=== PATIENT | male | born 1985 | race Caucasian/White ===

== ENCOUNTER 2022-01-22 16:18 | Emergency (ER) | payer OTHER ==
[~2022-01-22] VITALS: Ht 182.9 cm; Wt 104.8 kg
[2022-01-22] MEDS ORDERED: BUSPIRONE HCL10 MG PO (17:06)
[2022-01-22] MEDS ORDERED: LEVOFLOXACIN500 MG PO (18:50)
== END 2022-01-22 19:05 | disposition home or self-care (01) ==
LOC: ED 16:18
DX: N45.1 Epididymitis (principal)
CPT/HCPCS: 76870; 81001; 96365; 96375; 99284-25; J0696; J1885

== ENCOUNTER 2025-04-18 21:47 | Emergency (ER) | payer OTHER ==
[~2025-04-18] VITALS: Ht 182.9 cm; Wt 110.0 kg
[~2025-04-18 21:47] MED LIST: BUSPIRONE HCL10 MG PO; LEVOFLOXACIN500 MG PO
[2025-04-18] MEDS ORDERED: MORPHINE SULFATE 4 MG/ML VIAL IV ONE (23:15)
[2025-04-18 23:20] LABS: BASOPHILS 0.4 % (0.2-1.2); EOSINOPHILS 0.9 % (0.8-7.0); LYMPHOCYTES 9.9 % (21.8-53.1); MCH 30.4 PG (25.7-32.2); MCHC 35.6 g/dL (32.3-36.5); MCV 85.4 fL (79.0-92.2); MONOCYTES 6.5 % (5.3-12.2); NEUTROPHILS 81.7 % (34.0-67.9); RBC 5.26 M/uL (4.63-6.08)
[2025-04-18 23:41] LABS: ALT (SGPT) 42.0 U/L (14-59); AST (SGOT) 17.0 U/L (15-37); GLOMERULAR FILTRATION RATE,EST 103.0 mL/min (>60); PROTEIN, TOTAL 6.9 g/dL (6.4-8.2); UREA NITROGEN 16.0 mg/dL (7-18)
[2025-04-19] MEDS ORDERED: CIPRO500 MG PO (00:14)
[2025-04-19] MEDS ORDERED: CEFTRIAXONE SOD 250 MG VIAL IV ONE (00:15)
[2025-04-19] MEDS ORDERED: HYDROCODONE BIT/ACETAMINOPHEN 5/325 MG 1 TAB HOME.PACK PO ONE (00:15)
[2025-04-19] MEDS ORDERED: DOXYCYCLINE HYCLATE 100 MG HOME.PACK PO ONE (00:15)
[2025-04-19] MEDS ORDERED: HYDROCODON-ACE1 EA10 PO (00:15)
[2025-04-19 01:06] VITALS: BP 137/79
== END 2025-04-19 01:07 | disposition home or self-care (01) ==
LOC: ED 21:47
PROVIDERS: Family Medicine
DX: N45.3 Epididymo-orchitis (principal); Z79.899 Other long term (current) drug therapy
CPT/HCPCS: 76870; 80053; 85025; 86780; 96374; 96375; 99284-25; A9270; J0696; J2270

== ENCOUNTER 2025-04-20 18:46 | Inpatient (IN) | payer OTHER ==
[~2025-04-20] VITALS: Ht 182.9 cm; Wt 103.5 kg
[~2025-04-20 18:46] MED LIST changes: +CIPRO500 MG PO; +HYDROCODON-ACE1 EA10 PO
--- OUTSIDE RECORDS SUMMARY | 2025-04-20 18:53 | XMS ---
PreManage Notification: TIFFANIE LOPEZ Security Global Professional Events No recent Security Events currently on file CRITERIA MET - [facility] - 2 Visits in 30 Days CARE PROVIDERS -, [facility]ist: Director Of Development And Marketing [facility] PHONE: [phone] [place], [facility]: [facility] ([facility]) PHONE: [phone] Martha has no Care Guidelines for this patient. [place] VISIT COUNT (12 MO.) 2 [facility] TOTAL 2 NOTE: Visits indicate total known visits. ED/UCC VISIT TRACKING (12 MO.) 04/20/2025 18:47 [facility] [place] TYPE: Emergency COMPLAINT: - GENITAL PROBLEM 04/18/2025 21:47 [facility] [place] TYPE: Emergency COMPLAINT: - ABDOMINAL PAIN INPATIENT VISIT TRACKING (12 MO.) No inpatient visits to display in this time frame [email or web address]
[2025-04-20 21:05] LABS: BASOPHILS 0.3 % (0.2-1.2); EOSINOPHILS 0.7 % (0.8-7.0); LYMPHOCYTES 6.5 % (21.8-53.1); MCH 30.4 PG (25.7-32.2); MCHC 34.8 g/dL (32.3-36.5); MCV 87.3 fL (79.0-92.2); MONOCYTES 5.9 % (5.3-12.2); NEUTROPHILS 86.0 % (34.0-67.9); RBC 5.04 M/uL (4.63-6.08)
[2025-04-20 21:30] LABS: ALT (SGPT) 35.0 U/L (14-59); AST (SGOT) 14.0 U/L (15-37); GLOMERULAR FILTRATION RATE,EST 80.0 mL/min (>60); PROTEIN, TOTAL 7.9 g/dL (6.4-8.2); UREA NITROGEN 17.0 mg/dL (7-18)
[2025-04-20] MEDS ORDERED: MORPHINE SULFATE 4 MG/ML VIAL IV ONE (21:45)
[2025-04-21] VITALS (8 sets, daily range): BP systolic 97–137; BP diastolic 54–75
[2025-04-21] MEDS ORDERED: KETOROLAC TROMETHAMINE 30 MG/ML VIAL IV PRN (00:15)
[2025-04-21] MEDS ORDERED: MORPHINE SULFATE 4 MG/ML VIAL IV PRN (00:15)
[2025-04-21] MEDS ORDERED: ACETAMINOPHEN 325 MG TAB PO PRN (00:15)
[2025-04-21] MEDS ORDERED: SODIUM CHLORIDE 0.9% 1,000 ML IV SCH (00:15)
--- NOTE | 2025-04-21 01:27 | NUR ---
PT ARRIVES TO FLOOR VIA , PT'S FRIEND RAFFI AT BEDSIDE. PT IS ALERT AND ORIENTED, ABLE TO STAND FROM WC AND TRANSFER TO THE BED WITH MINIMAL ASSISTANCE. PT ASSESSMENT COMPLETE. PT DENIES NAUSEA, OR SOB. REPORTS PAIN 6/10. NATALIIA AREA VISUALIZED, R TESTICLE IS APPROXIMATELY BASEBALL SIZED. SCROTUM WITH GENERALIZED REDNESS AND WARMTH. IV FLUSHED WITH 10 ML NS, PATENT, BRISK BLOOD RETURN NOTED. IVF INITIATED ORDERED. PRN FOR PAIN ADMINISTERED, SEE EMAR. PT AND FRIEND ORIENTED TO ROOM, POC FOR THIS SHIFT, CALL LIGHT UTILIZATION. SANDWHICH BOX, SNACKS, AND ICE WATER PROVIDED. PT AND FRIEND DENY FURTHER NEEDS, QUESTIONS, OR CONCERNS. CALL LIGHT LEFT WITHIN PT REACH.
--- NOTE | 2025-04-21 01:46 | NUR ---
PT ROUNDING. PT STATES THAT PAIN IS WELL CONTROLLED AFTER PRN. DENIES NEEDS AT THIS TIME. CALL LIGHT IN REACH. FRIEND RESTING ON COUCH.
--- NOTE | 2025-04-21 02:37 | NUR ---
PT ROUNDING. PT RESTING IN BED WITH EYES CLOSED. RESPIRATIONS EVEN AND UNLABORED. 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 PT'S FRIEND ASLEEP ON COUCH. CALL LIGHT IN REACH.
--- NOTE | 2025-04-21 04:18 | NUR ---
PT ROUNDING. PT RESTING IN BED ON L SIDE. RESPIRATIONS EVEN AND UNLABORED. 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 PT'S FRIEND LEFT FOR HOME. CALL LIGHT WITHIN PT REACH.
--- NOTE | 2025-04-21 06:08 | NUR ---
PT ROUNDING. PT RESTING WITH EYES CLOSED, LYING ON L SIDE. PT WAKES EASILY TO VOICE AND TOUCH. PT DENIIES SOB OR NAUSEA. PT STATES THAT HIS PAIN IS IMPROVED. RATES 3/10. PT'S TESTICLE REMAINS UNCHANGED, SWOLLEN TO APPROXIMATELY SIZE OF BASEBALL WITH GENERALIZED SCORTAL REDNESS. PT ABLE TO VOID USING URINAL. VS OBTAINED. WNL. ICE WATER REFILLED PER PT REQUEST. PT DENIES FURTHER NEEDS AT THIS TIME. CALL LIGHT IN REACH.
--- NOTE | 2025-04-21 07:28 | NUR ---
RECIEVED REPORT FROM VAIBHAV VILLANUEVA. PT RESTING IN BED WITH EYES CLOSED, CALL LIGHT WITHIN REACH.
[2025-04-21] MEDS ORDERED: NICOTINE 14 MG/24 HR 1 EA TDSY TD SCH (09:00)
[2025-04-21] MEDS ORDERED: PANTOPRAZOLE SODIUM 40 MG TABEC PO SCH (09:00)
[2025-04-21] MEDS ORDERED: OXYCODONE HCL 5 MG TAB PO PRN (09:15)
--- NOTE | 2025-04-21 11:00 | NUR ---
PERFORMED BLADDER SCAN FOR 240ML URINE.
--- NOTE | 2025-04-21 11:36 | NUR ---
IV SALINE LOCKED AND WRAPPED FOR PT TO TAKE SHOWER. PT UP TO BATHROOM INDEPENDENTLY AND SHOWER SUPPLIES PROVIDED. PT STATES NO FURTHER NEEDS AT THIS TIME, VERBALIZES UNDERSTANDING OF USE OF BATHROOM CALL LIGHT. CALL LIGHT WITHIN REACH.
[2025-04-21] MEDS ORDERED: PHARMACY RENAL DOSE ADJUSTMENT 1 DOSE MISC PO SCH (12:00)
--- NOTE | 2025-04-21 13:55 | NUR ---
INTO ROOM TO START IV ABX PER ORDER. PT SLEEPING, RESPIRATIONS EVEN. PT AWAKENS TO VERBAL STIMULI, VITALS TAKEN. PT DENIES NEEDS AT THIS TIME. CALL LIGHT IN REACH
--- NOTE | 2025-04-21 18:02 | NUR ---
PT SITTING IN BED VISITING WITH SIGNIFICANT OTHER. PT STATES THAT HIS PAIN HAS DECREASED TO 4/10 SINCE RECIEVING PAIN MEDICATION. PT STATES NO CURRENT NEEDS, CALL LIGHT WITHIN REACH.
--- NOTE | 2025-04-21 19:15 | NUR ---
REPORT RECEIVED FROM OFFGOING VAIBHAV KIDD.
[2025-04-21] MEDS ORDERED: METRONIDAZOLE500 MG PO (20:00)
[2025-04-21] MEDS ORDERED: CEFDINIR300 MG PO (20:00)
--- NOTE | 2025-04-21 20:01 | NUR ---
PT UTILIZES CALL LIGHT, REQUESTS MATH COACH TO ROOM. PT'S FRIEND LEAVING THE ROOM WITH HER BELONGINGS SHAKING HER HEAD I ENTER. PT STATES "I NEED YOU TO GET THIS STUFF OFF OF ME, I'VE GOT TO GET OUT OF HERE." PT AGREES TO WAIT FOR MD TO COME TALK TO HIM. PT STATES, "YOU GUYS HAVE BEEN GREAT" STATES HE HAS THINGS TO TAKE CARE OF. HOSPITALIST NOTIFIED, CAME TO FLOOR TO SEE PT. PT SIGNED AMA FORM. OTHER RN REMOVED IV SITE. PT GETTING DRESSED INDEPENDENTLY, DENIES ASSISTANCE. PT AMBULATES OFF OF FLOOR. DENIES QUESTIONS, CONCERNS, OR NEEDS.
--- NOTE | 2025-04-22 10:20 | NUR ---
UR RETROACTIVE REVIEW: GLADYS, MEETS INPT FOR UROLOGIC DISEASE GRG EPIDYDMITIS WITH NEED FOR IV ANTIBIOTICS [facility] IN[facility] 04/21/25 @ 0010 ORDER MATCHES REG AUTH PENDING, WILL SEND CLINICALS FOR REVIEW CLINT'Rj SETH TO HOME
== END 2025-04-21 20:10 | disposition left against medical advice (07) | DRG 728 ==
LOC: ED 18:46 → MS 04-21 00:10
PROVIDERS: Family Medicine; ADMIT Internal Medicine; ATTEND Internal Medicine
DX: N45.1 Epididymitis (principal); F17.210 Nicotine dependence, cigarettes, uncomplicated; D72.829 Elevated white blood cell count, unspecified; Z71.6 Tobacco abuse counseling; Z79.899 Other long term (current) drug therapy; Z53.29 Procedure and treatment not carried out because of patient's decision for other reasons
CPT/HCPCS: 36415; 51798; 74177; 80053; 83605; 85025; 85060; 96365; 96367; 96375; 99285-25; A9270; J0696; J1885; J2270; J7030